=== PATIENT | male | born 1995 | race African-American/Black ===

== ENCOUNTER 2017-08-19 10:14 | Emergency (ER) | payer OTHER ==
[~2017-08-19] VITALS: Ht 177.8 cm; Wt 86.2 kg
[2017-08-19 10:22] VITALS: BP 150/86
--- NOTE | 2017-08-19 10:44 | ED UPPER/LOWER EXTREMITY COMPL ---
History of Present Illness General Chief Complaint: Plantar Puncture Wound Stated Complaint: TOOTHPICK STUCK IN BOTTOM OF RT FOOT Source: patient Exam Limitations: no limitations Vital Signs & Intake/Output Vital Signs & Intake/Output Vital Signs Date Time Temp Pulse Resp B/P B/P Pulse O2 O2 Flow FiO2 Mean Ox Delivery Rate 08/19 1022 97.5 64 20 150/86 98 Room Air Allergies Coded Allergies: azithromycin (From ZITHROMAX) (BLISTERS IN MOUTH 08/19/17) Reconcile Medications No Known Home Medications Triage Note: TOOTHPICK EMBEDDED IN RIGHT FOOT. NO BLEEDING Triage Nurses Notes Reviewed? yes Onset: Abrupt Duration: constant Timing: single episode today Severity: moderate Severity Numbers: 5 HPI: Patient is a 22-year-old male with an unremarkable past medical history since emergency room stating that "my room is very messy" while walking in his room today barefoot a toothpick punctured his right plantar aspect of his foot where due to pain he was unable to remove this. Tetanus is unknown. No bleeding has occurred. No medications given prior to arrival. (Isaiah Gallardo) Past History Travel History Traveled to [place] past 21 day No Medical History Any Pertinent Medical History? none Neurological: NONE EENT: NONE Cardiovascular: NONE Respiratory: NONE Gastrointestinal: NONE Hepatic: NONE Renal: NONE Musculoskeletal: NONE Psychiatric: NONE Endocrine: NONE Surgical History Surgical History: non-contributory Psychosocial History What is your primary language Indonesian Tobacco Use: Current Not Daily ETOH Use: denies use Illicit Drug Use: marijuana Family History Hx Contributory? No (Isaiah Gallardo) Review of Systems Review of Systems Constitutional: Reports: no symptoms. EENTM: Reports: no symptoms. Respiratory: Reports: no symptoms. Cardiovascular: Reports: no symptoms. Gastrointestinal/Abdominal: Reports: no symptoms. Genitourinary: Reports: no symptoms. Musculoskeletal: Reports: see HPI. Skin: Reports: see HPI. Neurological/Psychological: Reports: no symptoms. Hematologic/Endocrine: Reports: no symptoms. Immunological: Reports: no symptoms. All Other Systems: Reviewed and Negative (Isaiah Gallardo) Physical Exam Physical Exam General Appearance: no apparent distress, alert, comfortable Head: atraumatic Eyes: Bilateral: normal appearance. Ears, Nose, Throat: hearing grossly normal Neck: normal inspection Cardiovascular/Respiratory: no respiratory distress Peripheral Pulses: 2+ dorsalis pedis (R) Neurologic/Tendon: normal sensation, normal motor functions, normal tendon functions, responds to pain, no evidence tendon injury, no pulse deficit Diagram Feet Bottom 1) Noted puncture wound WITH approximately one third of the toothpick embedded to plantar aspect of foot no surrounding discharge leading (Isaiah Gallardo) Progress Differential Diagnosis: fracture, gout, septic arthritis, sprain, tendon injury Plan of Care: Current Medications Sig/Christy Start time Last Medication Dose Stop Time Status Admin Lidocaine 5 ML ONCE ONE 08/19 1044 UNVr (Lidocaine 1%) 08/19 1045 Differential diagnosis include puncture's wound foreign body retention No concerns of fracture at this time, the area was sterilized with Betadine, using approximately 8 mL of 1% lidocaine around the puncture site wound the area was anesthetized then I completely removed the intact toothpick clean the area with chlorhexidine applied bacitracin bandage. Patient tolerated well. Tetanus was updated. I discussed with patient that a foreign body could always be retained however on examination after the toothpick was removed it was completely intact and no concerns of foreign body at this time (Isaiah Gallardo) Departure Departure Disposition: HOME OR SELF CARE Condition: Stable Clinical Impression Primary Impression: Puncture wound of foot, right Referrals: Debi Nelson APRN (PCP/Family) Additional Instructions: As discussed apply bacitracin to the wound once a day and change the dressings once a day and if you note signs of infection redness, pain, swelling, discharge return to emergency room. Keep area dry and clean YOU can. Departure Forms: Customer Survey General Discharge Information Prescriptions: Current Visit Scripts No Known Home Medications (Isaiah Gallardo) PA/FORENSIC TECHNICIAN Co-Sign Statement Statement: ED Attending supervision documentation- [x] I saw and evaluated the patient. I have also reviewed all the pertinent lab results and diagnostic results. I agree with the findings and the plan of care as documented in the PA's/FORENSIC TECHNICIAN's documentation. [] I have reviewed the ED Record and agree with the PA's/FORENSIC TECHNICIAN's documentation. [] Additions or exceptions (if any) to the PAs/FORENSIC TECHNICIAN's note and plan are summarized below: [] (Moshe Moore DO
== END 2017-08-19 11:35 ==
LOC: ERH 10:14
DX: S91.331A Puncture wound without foreign body, right foot, initial encounter (principal); W45.8XXA Other foreign body or object entering through skin, initial encounter; Y92.003 Bedroom of unspecified non-institutional (private) residence as the place of occurrence of the external cause; Y93.01 Activity, walking, marching and hiking
CPT/HCPCS: J2001